=== PATIENT | female | born 1945 | race Hispanic/Latino ===

== ENCOUNTER 2017-09-12 16:03 | Emergency (ER) | payer OTHER ==
[2017-09-12] MEDS ORDERED: TRAMADOL HCL 50 MG TAB ONE (17:19)
[2017-09-12] MEDS ORDERED: KETOROLAC 30 MG/ML INJ ONE (18:01)
--- NOTE | 2017-09-12 18:06 | RAD REPORT ---
EXAM DESCRIPTION: RAD - Chest Single View - 09/12/2017 5:31 pm CLINICAL HISTORY: Chest pain COMPARISON: January 2017 TECHNIQUE: AP portable chest image was obtained 1715 hours . FINDINGS: Lung volumes are relatively low but similar to the prior study. No infiltrate, mass or colton lure finding. Heart, mediastinal and hilar regions within normal limits. Trachea is midline. No measu rable pleural effusion and no pneumothorax. No acute bone abnormality seen. No acute aortic findings suspected. IMPRESSION: No acute cardiopulmonary process. No significant change from comparison.
--- NOTE | 2017-09-12 18:08 | RAD REPORT ---
EXAM DESCRIPTION: RAD - Ribs Left - 09/12/2017 5:31 pm CLINICAL HISTORY: Left anterior chest pain COMPARISON: None. FINDINGS: No displaced rib fracture is seen and no non-displaced rib fractures suspected. No aggress willis rib lesion. No underlying pneumothorax, effusion, infiltrate or pulmonary contusion. Patient has prominent costochondral calcifications. No acute thoracic vertebral finding identifiable. No paraspinal mass. IMPRESSION: Negative left rib series for acute or suspicious finding.
--- NOTE | 2017-09-12 19:12 | RAD REPORT ---
EXAM DESCRIPTION: CT - Thorax Wo Con - 09/12/2017 6:37 pm CLINICAL HISTORY: Fall, left-sided chest pain, exam findings out of proportion to the imaging findin gs. COMPARISON: Chest and rib films same date, CT study 2013 TECHNIQUE: Axial 5 mm thick images of the chest were obtained without IV contrast. All CT scans are performed using dose optimization technique as appropriate and may include automated exposure control or mA/KV adjustment according to patient size. FINDINGS: No mass, infiltrate or pulmonary contusion. No pneumothorax or pleural fluid collection. N o pleural thickening or pleural effusion. No pneumothorax. No abnormal mediastinal or hilar masses or lymphadenopathy seen. No gross aortic or pulmonary artery finding suspected. Assessment is limited in the absence of IV contrast. No pericardial thickening or effusion. Patient has prominent costochondral calcifications. No thoracic vertebral compression. No chest wall mass or abnormal axillary lymphadenopathy. IMPRESSION: Negative non-contrast CT chest examination for acute or significant finding.
--- NOTE | 2017-09-12 19:16 | EDPHYS ---
Physician Documentation [facility] Name: Eliz Heart Age: 72 yrs Sex: Female : 1945 Arrival Date: 09/12/2017 Time: 16:03 Bed 18 Private MD: Mariel Lai H ED Physician Robin Jones HPI: 09/12 17:16 This 72 yrs old Female presents to ER via Wheelchair with complaints of Chest kb Pain. 17:16 The patient or guardian reports chest pain that is located primarily in the anterior kb chest wall. Onset: The symptoms/episode began/occurred 6 day(s) ago, and became worse last night. The pain does not radiate. Associated signs and symptoms: The patient has no apparent associated signs or symptoms. The chest pain is described as sharp. Duration: The patient or guardian reports a single episode, that is still ongoing, and worsening. Modifying factors: The symptoms are alleviated by nothing. the symptoms are aggravated by activity, breathing, cough, deep breath, movement, palpation of area. Severity of pain: At its worst the pain was moderate in the emergency department the pain is unchanged. The patient has not experienced similar symptoms in the past. The patient has not recently seen a physician. Pt reports she fell 6 days ago and has had chest pain ever since. States the pain is across lower chest, under breasts. States the pain increased last night. Worse with deep breath, any movement, pressure to area. . Historical: - Allergies: 16:08 Tylenol; aj - Home Meds: 16:08 glipizide 10 mg Oral tab [Active]; metformin 1,000 mg Oral tab [Active]; aj - PMHx: 16:08 Diabetes - NIDDM; Hyperlipidemia; urinary incontinenece; aj - PSHx: 16:08 bladder lift; Hysterectomy; Cholecystectomy; aj - Immunization history:: Adult Immunizations up to date. - Social history:: Smoking status: Patient/guardian denies using tobacco. ROS: 17:16 Constitutional: Negative for fever, chills, and weight loss, ENT: Negative for injury, kb pain, and discharge, Neck: Negative for injury, pain, and swelling, Respiratory: Negative for shortness of breath, cough, wheezing, and pleuritic chest pain, Abdomen/GI: Negative for abdominal pain, nausea, vomiting, diarrhea, and constipation, MS/Extremity: Negative for injury and deformity, Skin: Negative for injury, rash, and discoloration, Neuro: Negative for headache, weakness, numbness, tingling, and seizure. 17:16 Cardiovascular: Positive for chest pain, with cough, with movement, of the diaphragm and left lateral anterior chest, Negative for edema, orthopnea, palpitations, paroxysmal nocturnal dyspnea. Exam: 17:15 Constitutional: This is a well developed, well nourished patient who is awake, alert, kb and in no acute distress. Head/Face: Normocephalic, atraumatic. ENT: Nares patent. No nasal discharge, no septal abnormalities noted. Tympanic membranes are normal and external auditory canals are clear. Oropharynx with no redness, swelling, or masses, exudates, or evidence of obstruction, uvula midline. Mucous membranes moist. Neck: Trachea midline, no thyromegaly or masses palpated, and no cervical lymphadenopathy. Supple, full range of motion without nuchal rigidity, or vertebral point tenderness. No Meningismus. Cardiovascular: Regular rate and rhythm with a normal S1 and S2. No gallops, murmurs, or rubs. Normal PMI, no JVD. No pulse deficits. Respiratory: Lungs have equal breath sounds bilaterally, clear to auscultation and percussion. No rales, rhonchi or wheezes noted. No increased work of breathing, no retractions or nasal flaring. Abdomen/GI: Soft, non-tender, with normal bowel sounds. No distension or tympany. No guarding or rebound. No evidence of tenderness throughout. Skin: Warm, dry with normal turgor. Normal color with no rashes, no lesions, and no evidence of cellulitis. MS/ Extremity: Pulses equal, no cyanosis. Neurovascular intact. Full, normal range of motion. Neuro: Awake and alert, GCS 15, oriented to person, place, time, and situation. Cranial nerves II-XII grossly intact. Motor strength 5/5 in all extremities. Sensory grossly intact. Cerebellar exam normal. Normal gait. 17:15 Chest/axilla: Inspection: normal, Palpation: tenderness, that is moderate, of the diaphragm and left lateral anterior chest, that partially reproduces the patient's complaints. Vital Signs: 16:08 BP 135 / 81; Pulse 94; Resp 21; Temp 98.2; Pulse Ox 98% on R/A; Weight 77.11 kg; Height aj 5 ft. 1 in. (154.94 cm); Pain 10/10; 17:10 BP 151 / 67; Pulse 81; Resp 20; Pulse Ox 96% on R/A; Pain 10/10; em 18:09 BP 144 / 71; Pulse 71; Resp 16; Pulse Ox 99% on R/A; Pain 8/10; em 19:33 BP 150 / 80; Pulse 79; Resp 16; Temp 98.1(O); Pulse Ox 94% on R/A; Pain 0/10; bs1 16:08 Body Mass Index 32.12 (77.11 kg, 154.94 cm) aj MDM: 16:10 Patient medically screened. kb 17:15 Data reviewed: vital signs, nurses notes. Data interpreted: Pulse oximetry: on room air kb is 96 %. Interpretation: normal. 19:14 Counseling: I had a detailed discussion with the patient and/or guardian regarding: the kb historical points, exam findings, and any diagnostic results supporting the discharge/admit diagnosis, radiology results, the need for outpatient follow up, a family practitioner, to return to the emergency department if symptoms worsen or persist or if there are any questions or concerns that arise at home. 09/12 16:15 Order name: Chest Single View XRAY; Complete Time: 18:09 kb 09/12 16:15 Order name: Ribs Left XRAY; Complete Time: 18:09 kb 09/12 16:20 Order name: EKG; Complete Time: 16:20 kb 09/12 18:16 Order name: CT Chest Wo Con; Complete Time: 19:14 kb 09/12 16:20 Order name: EKG - Nurse/Tech; Complete Time: 16:37 kb Administered Medications: 17:03 Drug: traMADol 50 mg Route: PO; em 17:48 Follow up: Response: No adverse reaction; Pain is unchanged, physician notified em 17:48 Drug: TORadol 60 mg Route: IM; Site: left gluteus; em 18:28 Follow up: Response: No adverse reaction; Pain is decreased em Disposition: 09/12/17 19:15 Discharged to Home. Impression: Contusion of left front wall of thorax. - Condition is Stable. - Discharge Instructions: Chest Contusion, [id number]. - Prescriptions for Tramadol 50 mg Oral Tablet - take 1 tablet by ORAL route every 8 hours as needed; 12 tablet. - Medication Reconciliation Form, Thank You Letter, Antibiotic Education, Prescription Opioid Use form. - Follow up: Emergency Department; When: As needed; Reason: Recheck today's complaints, Continuance of care, Re-evaluation by your physician. Follow up: Private Physician; When: 2 - 3 days; Reason: Recheck today's complaints, Continuance of care, Re-evaluation by your physician. Addendum: 09/14/2017 06:22 Co-signature as Attending Physician, Robin Jones MD. g s Signatures: Dispatcher [employer] EDID Ethel Juares, STUDIO MUSICIAN-C STUDIO MUSICIAN-Naye Echavarria, RN RN Bruce Simon, HOSPITAL COORDINATOR HOSPITAL COORDINATOR em Robin Jones MD MD gs Salazar, Brittany, RN RN bs1
--- NOTE | 2017-09-12 19:16 | ER ---
Nurse's Notes [facility] Name: Eliz Heart Age: 72 yrs Sex: Female : 1945 Arrival Date: 09/12/2017 Time: 16:03 Bed 18 Private MD: Mariel Lai H Diagnosis: Contusion of left front wall of thorax Presentation: 09/12 16:06 Presenting complaint: Patient states: Reports anterior chest pain that started 6 days aj ago when patient fell at work. Patient reports pain became worse last night. Pain is exacerbated with deep breathing and palpation. Transition of care: patient was not received from another setting of care. Onset of symptoms was September 06, 2017. Care prior to arrival: None. 16:06 Method Of Arrival: Wheelchair aj 16:06 Acuity: THOMAS 3 aj Triage Assessment: 16:08 General: Appears in no apparent distress. uncomfortable, Behavior is calm, cooperative, aj appropriate for age. Pain: Complains of pain in anterior aspect of right upper chest, anterior aspect of left upper chest, mid-sternal area, right breast and left breast Pain currently is 10 out of 10 on a pain scale. Neuro: Level of Consciousness is awake, alert, obeys commands, Oriented to person, place, time, situation. Cardiovascular: Reports chest pain, Capillary refill < 3 seconds in bilateral fingers Patient's skin is warm and dry. Chest pain is described as severe, quality is sharp, is located in anterior chest wall. Respiratory: Reports pain with respiration Airway is patent Respiratory effort is even, unlabored, Respiratory pattern is regular, symmetrical. Derm: Skin is intact, is healthy with good turgor, Skin is pink, warm \T\ dry. normal. Historical: - Allergies: 16:08 Tylenol; aj - Home Meds: 16:08 glipizide 10 mg Oral tab [Active]; metformin 1,000 mg Oral tab [Active]; aj - PMHx: 16:08 Diabetes - NIDDM; Hyperlipidemia; urinary incontinenece; aj - PSHx: 16:08 bladder lift; Hysterectomy; Cholecystectomy; aj - Immunization history:: Adult Immunizations up to date. - Social history:: Smoking status: Patient/guardian denies using tobacco. Screenin:20 Abuse screen: Denies threats or abuse. Nutritional screening: No deficits noted. em Tuberculosis screening: No symptoms or risk factors identified. Fall Risk None identified. Assessment: 16:20 Reassessment: Patient and/or family updated on plan of care and expected duration. Pain em level reassessed. General: Appears in no apparent distress. uncomfortable, Behavior is cooperative, anxious, Reports falling and landing on chest 6 days ago, had minimal pain 6 days ago, pain became worse last night, more painful with respirations. Pain: Complains of pain in left breast and right breast and mid-sternal area. Pain: Pain radiates to back Pain currently is 10 out of 10 on a pain scale. Quality of pain is described as sharp, Pain began 6 days ago. Neuro: Level of Consciousness is awake, alert, obeys commands, Oriented to person, place, time, situation. Cardiovascular: Reports chest pain, shortness of breath, Denies diaphoresis, nausea, vomiting, Heart tones S1 S2 present Capillary refill < 3 seconds Patient's skin is warm and dry. Respiratory: Airway is patent Respiratory effort is even, unlabored, Respiratory pattern is regular, symmetrical. GI: Abdomen is round non-distended. : No signs and/or symptoms were reported regarding the genitourinary system. EENT: No signs and/or symptoms were reported regarding the EENT system. Derm: Skin is intact, Skin is pink, warm \T\ dry. Musculoskeletal: Range of motion: intact in all extremities. 16:25 General: The previous assessment is accurate, call light remains within reach. . ss 17:31 Reassessment: Patient appears in no apparent distress at this time. Patient and/or em family updated on plan of care and expected duration. Pain level reassessed. pt reports medication has not helped still in pain, moaning and grimacing, VIOLA Davenport notified, new medication orders received Patient states symptoms have not improved. 18:23 Reassessment: Patient and/or family updated on plan of care and expected duration. Pain em level reassessed. Patient is alert, oriented x 3, equal unlabored respirations, skin warm/dry/pink. medication has relieved the pain, rates pain 8/10, appears comfortable, family at bedside Patient states feeling better. Vital Signs: 16:08 BP 135 / 81; Pulse 94; Resp 21; Temp 98.2; Pulse Ox 98% on R/A; Weight 77.11 kg; Height aj 5 ft. 1 in. (154.94 cm); Pain 10/10; 17:10 BP 151 / 67; Pulse 81; Resp 20; Pulse Ox 96% on R/A; Pain 10/10; em 18:09 BP 144 / 71; Pulse 71; Resp 16; Pulse Ox 99% on R/A; Pain 8/10; em 19:33 BP 150 / 80; Pulse 79; Resp 16; Temp 98.1(O); Pulse Ox 94% on R/A; Pain 0/10; bs1 16:08 Body Mass Index 32.12 (77.11 kg, 154.94 cm) aj ED Course: 16:03 Patient arrived in ED. as 16:04 Mariel Lai DO is Private Physician. as 16:07 Triage completed. aj 16:08 Arm band placed on left wrist. Patient placed in an exam room. aj 16:10 Ethel Juares FNP-C is [facility]. kb 16:10 Robin Jones MD is Attending Physician. kb 16:18 Bruce Melara LVN is Primary Nurse. em 16:20 Patient has correct armband on for positive identification. Call light in reach. Side em rails up X2. Adult w/ patient. media monitor on. Pulse ox on. 16:20 No provider procedures requiring assistance completed. Patient did not have IV access em during this emergency room visit. Patient maintains SpO2 saturation greater than 95% on room air. 16:26 EKG done, by biometric technician. reviewed by Ethel WYLIE. at1 17:23 Radiology exam delayed due to patient is not appropriately dressed for the exam at this ml time. 17:26 X-ray completed. Patient tolerated procedure well. Patient moved back from radiology. ml 17:29 Chest Single View XRAY In Process Unspecified. EDMS 17:29 Ribs Left XRAY In Process Unspecified. EDMS 18:[address] via stretcher. nj 18:37 CT Chest Wo Con In Process Unspecified. EDMS 19:05 Report given to LAURIE Lynch. em 19:11 Report received from ALAN Barrera. bs1 Administered Medications: 17:03 Drug: traMADol 50 mg Route: PO; em 17:48 Follow up: Response: No adverse reaction; Pain is unchanged, physician notified em 17:48 Drug: TORadol 60 mg Route: IM; Site: left gluteus; em 18:28 Follow up: Response: No adverse reaction; Pain is decreased em Outcome: 19:15 Discharge ordered by MD. barkley 19:32 Discharged to home via wheelchair, with significant other. bs1 19:32 Condition: stable 19:32 Discharge instructions given to patient, significant other, Instructed on discharge instructions, follow up and referral plans. medication usage, Demonstrated understanding of instructions, follow-up care, medications, Prescriptions given X 1. 19:33 Patient left the ED. bs1 Signatures: Dispatcher [employer] EDMS Ethel Juares, MATERIAL COMBINER-C MATERIAL COMBINER-Ckb Naye Thurston, RN RN Bruce Simon, LITERARY WRITER LITERARY WRITER Talita Ching Melissa ml Smirch, Shelby, RN RN Naye basurto, water conservationist EKG Tat1 Denny Montoya Brittany RN RN bs1
[2017-09-12 19:41] VITALS: BP 150/80; TEMP 98.1; O2SAT 94
--- NOTE | 2017-09-15 13:01 | EKG ---
Test Date: 2017-09-12 Test Time: 16:19:37 Gluer And Wedger: CARMEN MEASUREMENT RESULTS: Intervals: Rate: 87 WI: 152 QRSD: 78 QT: 354 QTc: 425 [place]: P: -1 WI: 152 QRS: 24 T: 35 INTERPRETIVE STATEMENTS: Normal sinus rhythm Normal ECG Compared to ECG 01/16/2017 05:21:38 No significant changes Electronically Signed On 09-15-17 13:00:55 CDT by Josh Lowry
== END 2017-09-12 19:33 | disposition home or self-care (01) ==
LOC: ER 16:03
DX: S20.212A Contusion of left front wall of thorax, initial encounter (principal); W19.XXXA Unspecified fall, initial encounter; Z88.6 Allergy status to analgesic agent; E78.5 Hyperlipidemia, unspecified; E11.9 Type 2 diabetes mellitus without complications
CPT/HCPCS: 71045; 71250; 93005; 96372; 99285

== ENCOUNTER 2018-06-28 09:09 | Emergency (ER) | payer OTHER ==
--- OUTSIDE RECORDS SUMMARY | 2018-06-28 09:11 | XMS REPORT | Clinical Summary ---
:1945 Author Organization [facility] Address [address] [place] [address] Care Team Providers Name Role Phone Mariel Lai DO Primary Care Provider Allergies Active Allergy Reactions Severity Noted Date Comments Acetaminophen 01/29/2017 Medications Medication Sig Dispensed Refills Start Date End Date Status metFORMIN (GLUCOPHAGE) Take 500 mg by 1 12/12/2016 Active 500 mg tablet mouth 2 (two) times a day. glipiZIDE (GLUCOTROL) 5 Take 5 mg by 1 12/12/2016 Active MG tablet mouth 2 (two) times a day. lansoprazole (PREVACID) Take 30 mg by 1 01/07/2017 Active 30 MG capsule mouth once daily. betamethasone APPLY TO AFFECTED 99 12/12/2016 Active dipropionate AREA TWICE A DAY (DIPROLENE) 0.05 % cream aspirin (ECOTRIN) 81 MG Take 81 mg by 0 Active enteric coated tablet mouth daily. DOCOSAHEXANOIC ACID/EPA Take by mouth. 0 Active (FISH OIL ORAL) Active Problems Problem Noted Date Pure hypercholesterolemia 08/20/2017 Chest pain 01/29/2017 Encounters Date Type Specialty Care Team Description 03/27/2018 Orders Only Cardiology Reuben Clayton MD 03/04/2018 Orders Only Cardiology Shelbie Kuhn ( Primary Dx); YONNY Giang SOB (shortness of breath); Palpitation 08/20/2017 Office Visit Cardiology Reuben Clayton Pure hypercholesterolemia (Primary Dx) after 06/27/2017 Social History Tobacco Use Types Packs/Day Years Used Date Never Smoker Smokeless Tobacco: Never Used Sex Assigned at Date Recorded Not on file Job Start Date Occupation Industry Not on file Not on file Not on file Travel History Travel Start Travel End No recent travel history available. 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 MINE ANALYST Pulse 72 08/20/2017 11:04 AM MINE ANALYST Temperature - - Respiratory Rate - - Oxygen Saturation - - Inhaled Oxygen Concentration - - Weight 81.2 kg (179 lb) 08/20/2017 11:04 AM MINE ANALYST Height 154.9 cm (5' 1") 08/20/2017 11:04 AM MINE ANALYST Body Mass Index 33.82 08/20/2017 11:04 AM MINE ANALYST Plan of Treatment Health Maintenance Due Date Last Done Comments BREAST CANCER SCREENING 1995 COLON CANCER SCREENING 1995 SHINGLES VACCINES (1 of 2) 1995 PNEUMOCOCCAL POLYSACCHARIDE VACCINE AGE 65 AND OVER 2010 PNEUMOCOCCAL-13 2010 INFLUENZA VACCINE 01/15/2018 Procedures Procedure Name Priority Date/Time Associated Diagnosis Comments NM MYOCARDIAL PERFUSION Routine 03/27/2018 after 06/27/2017 Results Nm myocardial perfusion (03/27/2018) Narrative Performed At after 06/27/2017 Insurance Payer Benefit Plan / Group Subscriber ID Type Phone Address AETNA MEDICARE AETNA MEDICARE HMO/PPO [facility] xxxxxxxx HMO Advance Directives Patient has advance care planning documents on file. For more information, please contact:[place] [address]
[2018-06-28 09:45] LABS: Absolute Monocytes 0.4 K/uL (0.1-1.3); Absolute Neutrophil 3.4 K/uL (1.8-8.0); Basophils % 1.3 % (0-1.3); Eosinophils % 8.1 % (0-4.4); Hematocrit 41.9 % (36.0-45.0); Lymphocytes % 18.5 % (15.3-44.8); MPV 9.1 fL (7.6-11.3); Monocytes % 8.1 % (3.3-12.3); RBC Red Blood Cell Count 4.95 M/uL (3.86-4.86)
[2018-06-28 09:58] LABS: Potassium 4.2 mmol/L (3.5-5.1)
--- NOTE | 2018-06-28 10:33 | ER ---
Nurse's Notes [facility] Name: Eliz Heart Age: 73 yrs Sex: Female : 1945 Arrival Date: 06/28/2018 Time: 09:12 Bed 20 Private MD: Diagnosis: Acute upper respiratory infection, unspecified Presentation: 06/28 09:16 Presenting complaint: EMS states: called out for cough , SOB, and coughing up blood, pt em reports feeling bad since , denies fever, reports vomiting after coughing sputum. Transition of care: patient was not received from another setting of care. Onset of symptoms was June 26, 2018. Risk Assessment: Do you want to hurt yourself or someone else? Patient reports no desire to harm self or others. Initial Sepsis Screen: Does the patient meet any 2 criteria? No. Patient's initial sepsis screen is negative. Does the patient have a suspected source of infection? No. Patient's initial sepsis screen is negative. Care prior to arrival: None. 09:16 Method Of Arrival: EMS: [facility] em 09:16 Acuity: THOMAS 3 ss Triage Assessment: 09:19 General: Appears in no apparent distress. uncomfortable, Behavior is calm, cooperative, em Reports feeling ill for fatigue for Denies fever. Pain: Complains of pain in chest. Historical: - Allergies: :19 Tylenol; em - PMHx: 09:19 Diabetes - NIDDM; Hyperlipidemia; urinary incontinenece; em - Immunization history:: Adult Immunizations up to date. - Social history:: Smoking status: Patient/guardian denies using tobacco. - Ebola Screening: : Patient negative for fever greater than or equal to 101.5 degrees Fahrenheit, and additional compatible Ebola Virus Disease symptoms Patient denies exposure to infectious person Patient denies travel to an Ebola-affected area in the 21 days before illness onset No symptoms or risks identified at this time. Screenin:20 Abuse screen: Denies threats or abuse. Nutritional screening: No deficits noted. em Tuberculosis screening: No symptoms or risk factors identified. Fall Risk None identified. Assessment: 09:19 General: Appears Behavior is calm, cooperative. Pain: Pain currently is 5 out of 10 on em a pain scale. Pain began 2-3 days ago. Neuro: Level of Consciousness is awake, alert, obeys commands, Oriented to person, place, time, situation. Cardiovascular: Capillary refill < 3 seconds Patient's skin is warm and dry. Respiratory: Reports shortness of breath on exertion cough that is productive, pain with cough Airway is patent Respiratory effort is even, unlabored, Respiratory pattern is regular, symmetrical, Breath sounds are clear bilaterally. GI: Reports nausea, vomiting. : No signs and/or symptoms were reported regarding the genitourinary system. EENT: No signs and/or symptoms were reported regarding the EENT system. Derm: Skin is intact, Skin is pink, warm \T\ dry. Musculoskeletal: Range of motion: intact in all extremities. 10:15 Reassessment: Patient appears in no apparent distress at this time. Patient and/or em family updated on plan of care and expected duration. Pain level reassessed. Patient is alert, oriented x 3, equal unlabored respirations, skin warm/dry/pink. Vital Signs: 09:19 BP 129 / 77; Pulse 97; Resp 16; Temp 98.5(O); Pulse Ox 95% on R/A; Weight 86.18 kg; em Height 5 ft. 1 in. (154.94 cm); Pain 5/10; 10:15 BP 135 / 58; Pulse 82; Resp 16; Pulse Ox 99% on R/A; em 09:19 Body Mass Index 35.90 (86.18 kg, 154.94 cm) em ED Course: 09:12 Patient arrived in ED. em 09:12 Ethel Juares FNP-C is [facility]. kb 09:12 Robin Jones MD is Attending Physician. kb 09:16 Bruce Melara LVN is Primary Nurse. em 09:19 Arm band placed on. em 09:20 Patient has correct armband on for positive identification. Bed in low position. Call em light in reach. Side rails up X2. Adult w/ patient. Pulse ox on. NIBP on. 09:22 Triage completed. ss 09:40 Initial lab(s) drawn, by me, sent to lab. Flu and/or RSV swab sent to lab. Inserted em saline lock: 22 gauge in right antecubital area, using aseptic technique. Blood collected. 09:47 Chest Single View In Process Unspecified. EDMS 10:45 No provider procedures requiring assistance completed. IV discontinued, intact, em bleeding controlled, No redness/swelling at site. Pressure dressing applied. Administered Medications: No medications were administered Outcome: 10:32 Discharge ordered by . filippo 10:58 Discharged to home ambulatory. em 10:58 Condition: good 10:58 Discharge instructions given to patient, family, Instructed on discharge instructions, follow up and referral plans. medication usage, Demonstrated understanding of instructions, follow-up care, medications, Prescriptions given X 1. 10:59 Patient left the ED. em Signatures: Dispatcher [employer] EDEthel Haskins, MARE-C MUSIC INDUSTRY INTERN-Bruce Julio, PARQUETRY LAYER PARQUETRY LAYER em Karolina Meredith, RN RN ss
--- NOTE | 2018-06-28 10:33 | EDPHYS ---
Physician Documentation [facility] Name: Eliz Heart Age: 73 yrs Sex: Female : 1945 Arrival Date: 06/28/2018 Time: 09:12 Bed 20 Private MD: ED Physician Robin Jones HPI: 06/28 09:23 This 73 yrs old Female presents to ER via EMS with complaints of Cough. kb 09:23 The patient or guardian reports cough, that is intermittent, described as moderate, kb with no sputum, flu symptoms, low-grade fever, myalgias. Onset: The symptoms/episode began/occurred 2 day(s) ago. Severity of symptoms: At their worst the symptoms were moderate, in the emergency department the symptoms are unchanged. Modifying factors: The symptoms are alleviated by nothing, the symptoms are aggravated by nothing. Associated signs and symptoms: Pertinent positives: fever, nausea, rhinorrhea, vomiting, Pertinent negatives: chest pain, diarrhea, ear ache, sore throat. The patient has not experienced similar symptoms in the past. The patient has not recently seen a physician. 09:24 Pt reports and son have had similar symptoms. . kb Historical: - Allergies: 09:19 Tylenol; em - PMHx: 09:19 Diabetes - NIDDM; Hyperlipidemia; urinary incontinenece; em - Immunization history:: Adult Immunizations up to date. - Social history:: Smoking status: Patient/guardian denies using tobacco. - Ebola Screening: : Patient negative for fever greater than or equal to 101.5 degrees Fahrenheit, and additional compatible Ebola Virus Disease symptoms Patient denies exposure to infectious person Patient denies travel to an Ebola-affected area in the 21 days before illness onset No symptoms or risks identified at this time. ROS: 09:22 ENT: Negative for injury, pain, and discharge, Neck: Negative for injury, pain, and kb swelling, Cardiovascular: Negative for chest pain, palpitations, and edema, Back: Negative for injury and pain, : Negative for injury, bleeding, discharge, and swelling, MS/Extremity: Negative for injury and deformity, Skin: Negative for injury, rash, and discoloration, Neuro: Negative for headache, weakness, numbness, tingling, and seizure. 09:22 Constitutional: Positive for body aches, chills, fatigue, fever, malaise, Negative for poor PO intake, weight loss. 09:22 Respiratory: Positive for cough, Negative for dyspnea on exertion, hemoptysis, orthopnea, pleurisy, shortness of breath, sputum production, wheezing. 09:22 Abdomen/GI: Positive for nausea and vomiting, Negative for abdominal pain, diarrhea, constipation, abdominal cramps, abdominal distension, anorexia. Exam: 09:23 Constitutional: This is a well developed, well nourished patient who is awake, alert, kb and in no acute distress. Head/Face: Normocephalic, atraumatic. ENT: Nares patent. No nasal discharge, no septal abnormalities noted. Tympanic membranes are normal and external auditory canals are clear. Oropharynx with no redness, swelling, or masses, exudates, or evidence of obstruction, uvula midline. Mucous membranes moist. Neck: Trachea midline, no thyromegaly or masses palpated, and no cervical lymphadenopathy. Supple, full range of motion without nuchal rigidity, or vertebral point tenderness. No Meningismus. Chest/axilla: Normal chest wall appearance and motion. Nontender with no deformity. No lesions are appreciated. Cardiovascular: Regular rate and rhythm with a normal S1 and S2. No gallops, murmurs, or rubs. Normal PMI, no JVD. No pulse deficits. Respiratory: Lungs have equal breath sounds bilaterally, clear to auscultation and percussion. No rales, rhonchi or wheezes noted. No increased work of breathing, no retractions or nasal flaring. Abdomen/GI: Soft, non-tender, with normal bowel sounds. No distension or tympany. No guarding or rebound. No evidence of tenderness throughout. Skin: Warm, dry with normal turgor. Normal color with no rashes, no lesions, and no evidence of cellulitis. MS/ Extremity: Pulses equal, no cyanosis. Neurovascular intact. Full, normal range of motion. Neuro: Awake and alert, GCS 15, oriented to person, place, time, and situation. Cranial nerves II-XII grossly intact. Motor strength 5/5 in all extremities. Sensory grossly intact. Cerebellar exam normal. Normal gait. Vital Signs: 09:19 BP 129 / 77; Pulse 97; Resp 16; Temp 98.5(O); Pulse Ox 95% on R/A; Weight 86.18 kg; em Height 5 ft. 1 in. (154.94 cm); Pain 5/10; 10:15 BP 135 / 58; Pulse 82; Resp 16; Pulse Ox 99% on R/A; em 09:19 Body Mass Index 35.90 (86.18 kg, 154.94 cm) em MDM: 09:13 Patient medically screened. kb 09:23 Data reviewed: vital signs, nurses notes. Data interpreted: Pulse oximetry: on room air kb is 95 %. Interpretation: normal. 10:32 Counseling: I had a detailed discussion with the patient and/or guardian regarding: the kb historical points, exam findings, and any diagnostic results supporting the discharge/admit diagnosis, lab results, radiology results, the need for outpatient follow up, a family practitioner, to return to the emergency department if symptoms worsen or persist or if there are any questions or concerns that arise at home. 06/28 09:29 Order name: Basic Metabolic Panel; Complete Time: 10:14 EDMS 06/28 09:29 Order name: CBC with Automated Diff; Complete Time: 09:51 EDMS 06/28 09:29 Order name: Influenza Screen (A ; Complete Time: 10:14 EDMS 06/28 09:29 Order name: Chest Single View; Complete Time: 11:26 EDMS Administered Medications: No medications were administered Disposition: 17:24 Co-signature as Attending Physician, Robin Jones MD. Disposition: 06/28/18 10:32 Discharged to Home. Impression: Acute upper respiratory infection, unspecified. - Condition is Stable. - Discharge Instructions: Upper Respiratory Infection, Adult, [id number]. - Prescriptions for Tessalon Perles 100 mg Oral Capsule - take 1 capsule by ORAL route every 8 hours As needed; 15 capsule. - Medication Reconciliation Form, Thank You Letter, Antibiotic Education, Prescription Opioid Use form. - Follow up: Emergency Department; When: As needed; Reason: Worsening of condition. Follow up: Private Physician; When: 2 - 3 days; Reason: Recheck today's complaints, Continuance of care, Re-evaluation by your physician. Signatures: Dispatcher [employer] EDKY Ethel Juares, DEJAN TAX SERVICES INTERN-Ckb Bruce Melara, ROCKET ENGINE COMPONENT MECHANIC ROCKET ENGINE COMPONENT MECHANIC Robin Aparicio MD MD Corrections: (The following items were deleted from the chart) 09:38 09:31 Influenza Screen (A ordered. EDKY EDMS 09:47 09:42 Chest Single View+RAD.RAD.BRZ ordered. EDKY EDMS 10:59 10:32 06/28/2018 10:32 Discharged to Home. Impression: Acute upper respiratory em infection, unspecified. Condition is Stable. Forms are Medication Reconciliation Form, Thank You Letter, Antibiotic Education, Prescription Opioid Use. Follow up: Emergency Department; When: As needed; Reason: Worsening of condition. Follow up: Private Physician; When: 2 - 3 days; Reason: Recheck today's complaints, Continuance of care, Re-evaluation by your physician. kb
--- NOTE | 2018-06-28 11:18 | RAD REPORT ---
EXAM DESCRIPTION: RAD - Chest Single View - 06/28/2018 9:47 am CLINICAL HISTORY: Cough, shortness of breath COMPARISON: August 2017 TECHNIQUE: AP portable chest image was obtained 0941 hours . FINDINGS: Lung volumes are low. Lung markings are similar to comparison. No acute finding suspected. Heart and vasculature are normal. No measurable pleural effusion and no pneumothorax. No acute bony abnormality seen. No acute aortic findings suspected. IMPRESSION: No acute cardiopulmonary process. No suspicious interval change.
[2018-06-28 11:48] VITALS: BP 135/58; TEMP 98.5; O2SAT 99
== END 2018-06-28 10:59 | disposition home or self-care (01) ==
LOC: ER 09:09
DX: J06.9 Acute upper respiratory infection, unspecified (principal); Z88.6 Allergy status to analgesic agent
CPT/HCPCS: 36415; 71045; 80048; 85025; 87804; 99284

== ENCOUNTER 2022-04-22 21:20 | Inpatient (IN) | payer OTHER ==
--- NOTE | 2022-04-22 21:47 | RAD REPORT ---
EXAM DESCRIPTION: CT - Ct Stroke Brain Wo Cont - 04/22/2022 9:39 pm CLINICAL HISTORY: Neuro deficit, acute, stroke suspected Headache, drowsiness, CVA symptomology COMPARISON: No comparisons TECHNIQUE: All CT scans are performed using dose optimization technique as appropriate and may inclu de automated exposure control or mA/KV adjustment according to patient size. FINDINGS: No intracranial hemorrhage, hydrocephalus or extra-axial fluid collection.Mild brain atrop hy is present. 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 Mild mucosal thickening the left maxillary antrum. The paranasal sinuses mastoids are otherwise clear . The calvarium is intact. IMPRESSION: No acute intracranial abnormality. If there is continued clinical concern for CVA, MR imaging of the brain would be recommended. The findings were discussed with Dr Allred in the ER on 04-22-22 at 9:41pm by telephone.
[2022-04-22 21:53] LABS: Absolute Lymphocytes (CBC) 2.3 K/uL (0.7-4.9); Hematocrit 37.7 % (36.0-45.0); Lymphocytes % 24.3 % (15.3-44.8); MCV 84.3 fL (80-100); MPV 8.7 fL (7.6-11.3); RBC Red Blood Cell Count 4.47 M/uL (3.86-4.86)
[2022-04-22] MEDS ORDERED: TENECTEPLASE 50 MG/10 ML VIAL IV ONE (22:02)
[2022-04-22 22:06] LABS: Potassium 3.4 mmol/L (3.5-5.1); Troponin High Sensitivity 41.4 pg/mL (<58.9)
--- NOTE | 2022-04-22 22:28 | RAD REPORT ---
EXAM DESCRIPTION: RAD - Chest Single View - 04/22/2022 10:17 pm CLINICAL HISTORY: weak Chest pain. COMPARISON: Chest Single View dated 06/28/2018; Chest Single View dated 09/12/2017; Chest Single View dated 01/16/2017; CHEST SINGLE VIEW dated 09/03/2015 FINDINGS: Portable technique limits examination quality. The lungs are underinflated resulting in vascular crowding. The heart is upper limit of normal in siz e. No displaced fractures.
--- NOTE | 2022-04-22 23:15 | EDPHYS ---
Physician Documentation [facility] Name: Eliz Heart Age: 77 yrs Sex: Female : 1945 Arrival Date: 04/22/2022 Time: 21:27 Bed 6 Private MD: ED Physician Miguel Angel Allred HPI: 04/23 03:22 This 77 yrs old Female presents to ER via EMS with complaints of S/S of kdr Possible Stroke. 03:22 The patient's problem is reported as dysphasia, slurred speech, slow speech. Onset: The kdr symptoms/episode began/occurred at 20:00. Duration: This was a single incident, the symptoms became persistent just prior to arrival, 2 minute(s) ago. Context: the episode(s) was witnessed, by a bystander, occurred at home. Associated signs and symptoms: The patient has no apparent associated signs or symptoms. Onset: The symptoms/episode began/occurred suddenly. Severity of symptoms: At their worst the symptoms were mild. Historical: - Allergies: 04/22 21:46 Tylenol; hb - Home Meds: 21:46 glipizide 10 mg Oral tab [Active]; metformin 1,000 mg Oral tab [Active]; hb - PMHx: 21:46 Diabetes - NIDDM; urinary incontinenece; Hyperlipidemia; hb - Immunization history:: Adult Immunizations up to date. - Social history:: Smoking status: Patient denies any tobacco usage or history of. ROS: 04/23 03:24 Constitutional: Negative for fever, chills, and weight loss, Eyes: Negative for injury, kdr pain, redness, and discharge, ENT: Negative for injury, pain, and discharge, Neck: Negative for injury, pain, and swelling, Cardiovascular: Negative for chest pain, palpitations, and edema, Respiratory: Negative for shortness of breath, cough, wheezing, and pleuritic chest pain, Abdomen/GI: Negative for abdominal pain, nausea, vomiting, diarrhea, and constipation, Back: Negative for injury and pain, : Negative for injury, bleeding, discharge, and swelling, MS/Extremity: Negative for injury and deformity, Skin: Negative for injury, rash, and discoloration, Psych: Negative for depression, anxiety, suicide ideation, homicidal ideation, and hallucinations, Allergy/Immunology: Negative for hives, rash, and allergies, Endocrine: Negative for neck swelling, polydipsia, polyuria, polyphagia, and marked weight changes, Hematologic/Lymphatic: Negative for swollen nodes, abnormal bleeding, and unusual bruising. Neuro: Positive for speech changes. Exam: 04/22 22:14 ECG was reviewed by the Attending Physician. kdr 04/23 03:24 Constitutional: This is a well developed, well nourished patient who is awake, alert, kdr and in no acute distress. Head/Face: Normocephalic, atraumatic. Eyes: Pupils equal round and reactive to light, extra-ocular motions intact. Lids and lashes normal. Conjunctiva and sclera are non-icteric and not injected. Cornea within normal limits. Periorbital areas with no swelling, redness, or edema. Neck: Trachea midline, no thyromegaly or masses palpated, and no cervical lymphadenopathy. Supple, full range of motion without nuchal rigidity, or vertebral point tenderness. No Meningismus. Chest/axilla: Normal chest wall appearance and motion. Nontender with no deformity. No lesions are appreciated. Cardiovascular: Regular rate and rhythm with a normal S1 and S2. No gallops, murmurs, or rubs. Normal PMI, no JVD. No pulse deficits. Respiratory: Lungs have equal breath sounds bilaterally, clear to auscultation and percussion. No rales, rhonchi or wheezes noted. No increased work of breathing, no retractions or nasal flaring. Abdomen/GI: Soft, non-tender, with normal bowel sounds. No distension or tympany. No guarding or rebound. No evidence of tenderness throughout. Back: No spinal tenderness. No costovertebral tenderness. Full range of motion. Skin: Warm, dry with normal turgor. Normal color with no rashes, no lesions, and no evidence of cellulitis. MS/ Extremity: Pulses equal, no cyanosis. Neurovascular intact. Full, normal range of motion. Psych: Awake, alert, with orientation to person, place and time. Behavior, mood, and affect are within normal limits. Neuro: Orientation: to person, place, time, situation, Mentation: lucid, slow to respond, confused, Cranial nerves: no acute changes, Cerebellar function: unable to test, Motor: moves all fours, Movement is very limited on initial evaluation patient did appear to make some effort to move upper and lower extremities however he was minimal at best. Vital Signs: 04/22 21:39 BP 139 / 71; Pulse 79; Resp 17; Pulse Ox 94% on R/A; Pain 0/10; hb 21:45 BP 139 / 71; Pulse 80; Resp 17; Pulse Ox 99% on R/A; hb 22:00 BP 148 / 71; Pulse 67; Resp 16; Pulse Ox 96% on R/A; hb 22:02 Weight 78.47 kg; hb 22:15 BP 140 / 63; Pulse 72; Pulse Ox 96% on R/A; hb 23:10 BP 130 / 93; Pulse 67; Resp 18; Pulse Ox 93% on R/A; jb4 04/23 00:15 BP 136 / 66; Pulse 80; Resp 16; Pulse Ox 96% on R/A; jb4 01:15 BP 130 / 59; Pulse 74; Resp 15; Pulse Ox 94% ; jb4 02:15 BP 120 / 60; Pulse 73; Resp 16; Pulse Ox 93% on R/A; jb4 02:40 BP 127 / 60; Pulse 76; Resp 16; Pulse Ox 97% on R/A; jb4 03:40 BP 111 / 51; Pulse 79; Resp 16; Pulse Ox 94% on R/A; jb4 04:45 BP 115 / 56; Pulse 73; Resp 16; Pulse Ox 94% on R/A; jb4 05:45 BP 129 / 57; Pulse 69; Resp 14; Pulse Ox 95% on R/A; jb4 06:40 BP 107 / 48; Pulse 71; Resp 16; Pulse Ox 92% on R/A; jb4 19:36 BP 138 / 65; Pulse 85; Resp 18; Pulse Ox 94% on R/A; NIH Stroke Scale Scores: 04/22 21:27 NIHSS Score: 18 jb4 22:14 NIHSS Score: 16 kdr 22:45 NIHSS Score: 0 jb4 MDM: 23:14 Patient medically screened. kdr 04/23 02:15 ED course: I discussed the M1 aneurysm finding with Dr. Modi. He indicated that kdr unless the aneurysm was greater than 5 mm that it would likely not warrant immediate intervention. In addition, given that she received TN K earlier in the day, that would also make her less likely for an acute intervention at this time. 03:24 Data reviewed: lab test result(s), radiologic studies. Counseling: I had a detailed kdr discussion with the patient and/or guardian regarding: the historical points, exam findings, and any diagnostic results supporting the discharge/admit diagnosis, lab results, radiology results, the need for further work-up and treatment in the hospital. 04/22 21:28 Order name: Basic Metabolic Panel; Complete Time: 23:09 kdr 04/22 21:28 Order name: CBC with Diff; Complete Time: 23:09 kdr 04/22 21:28 Order name: High Sensitivity Troponin; Complete Time: 23:09 kdr 04/22 21:28 Order name: Protime (+inr); Complete Time: 23:09 kdr 04/22 21:28 Order name: Ptt, Activated; Complete Time: 23:09 kdr 04/22 21:52 Order name: Glucose, Ancillary Testing; Complete Time: 23:09 EDMD 04/22 23:57 Order name: SARS-COV-2 Antigen Rapid; Complete Time: 00:38 EDMD 04/23 05:12 Order name: CBC with Automated Diff EDMD 04/23 05:23 Order name: Comprehensive Metabolic Panel EDMD 04/23 05:23 Order name: Lipid Profile EDMD 04/23 08:43 Order name: Glucose, Ancillary Testing EDMD 04/23 12:24 Order name: Glucose, Ancillary Testing EDMD 04/23 16:24 Order name: Glucose, Ancillary Testing EDMD 04/22 21:28 Order name: CT Stroke Brain w/o Contrast; Complete Time: 23:09 kdr 04/22 21:28 Order name: Stroke CXR 1 View; Complete Time: 23:09 kdr 04/22 21:28 Order name: EKG; Complete Time: 21:30 kdr 04/22 21:28 Order name: Accucheck; Complete Time: 21:43 kdr 04/22 21:28 Order name: Cardiac monitoring; Complete Time: 21:43 kdr 04/22 21:28 Order name: EKG - Nurse/Tech; Complete Time: 21:51 kdr 04/22 21:28 Order name: IV Saline Lock; Complete Time: 21:43 kdr 04/22 23:02 Order name: CT Neck Angio [facility] 04/22 23:02 Order name: CT Head Angio [facility] 04/22 23:08 Order name: Head angio EDMD 04/23 08:09 Order name: US EDMS 04/23 13:02 Order name: MRI EDMS 04/23 13:06 Order name: MRI EDMS 04/23 13:19 Order name: MRI EDMS 04/22 21:28 Order name: Labs collected and sent; Complete Time: 21:43 kdr 04/22 21:28 Order name: NPO; Complete Time: 21:43 kdr 04/22 21:28 Order name: O2 Per Protocol; Complete Time: 21:43 kdr 04/22 21:28 Order name: O2 Sat Monitoring; Complete Time: 21:43 kdr 04/22 21:28 Order name: Stroke Swallow Screen; Complete Time: 22:57 kdr Administered Medications: 04/22 22:09 Drug: TNK FOR STROKE - Tenecteplase 0.25 mg/kg {Co-Signature: marc (Juan Garcia RN).} Route: IV; Rate: per protocol; Site: left antecubital; 04/23 01:33 Drug: Benadryl (diphenhydrAMINE) 12.5 mg Route: IVP; Site: right antecubital; marc Point of Care Testing: Blood Glucose: 04/22 21:39 Blood Glucose: 240 mg/dL; hb Ranges: Critical Glucose Levels:Adult <50 mg/dl or >400 mg/dl <40 mg/dl or >180 mg/dl Disposition Summary: 04/22/22 23:14 Hospitalization Ordered Provider: Kodi Healy Condition: Fair kdr Problem: new kdr Symptoms: have improved kdr Bed/Room Type: Standard kdr Hospitalization Status: Inpatient Admission(04/22/22 23:16) Location: Intensive Care Unit(04/23/22 19:16) Room Assignment: 8-(04/23/22 19:16) dw Diagnosis - Weakness kdr - Dysarthria following unspecified cerebrovascular disease kdr - Dysphasia kdr Forms: - Medication Reconciliation Form kdr - SBAR form kdr NIH Stroke Scale - NIH Stroke Score Date: 04/22/2022 Time: 21:27 Total Score = 18 1a. Level of Consciousness (LOC) - 0(Alert) 1b. Level of Consciousness (LOC) (Month \T\ Age) - 0(Both) 1c. LOC Commands (Open \T\ Closes Eyes/Air Crew Member) - 0(Both) 2. Best Gaze (Lateral Gaze Paresis) - 0(Normal) 3. Visual Field Loss - 0(No visual loss) 4. Facial Palsy - 0(Normal) 5a. Left Arm: Motor (10-second hold) - 3(No effort against gravity) 5b. Right Arm: Motor (10-second hold) - 3(No effort against gravity) 6a. Left Leg: Motor (5-second hold - always test supine) - 4(No movement) 6b. Right Leg: Motor (5-second hold - always test supine) - 4(No movement) 7. Limb Ataxia (finger/nose \T\ heel/uriostegui - test with eyes open) - 0(Absent) 8. Sensory Loss (pinprick arms/legs/face) - 2(Severe to total loss) 9. Best Language: Aphasia (description/naming/reading) - 1(Mild to moderate aphasia) 10. Dysarthria (speech clarity - read or repeat words) - 1(Mild to Moderate) 11. Extinction and Inattention (visual/tactile/auditory/spatial/personal) - 0(No abnormality) Initials: jb4 NIH Stroke Scale - NIH Stroke Score Date: 04/22/2022 Time: 22:14 Total Score = 16 1a. Level of Consciousness (LOC) - 0(Alert) 1b. Level of Consciousness (LOC) (Month \T\ Age) - 0(Both) 1c. LOC Commands (Open \T\ Closes Eyes/Air Crew Member) - 0(Both) 2. Best Gaze (Lateral Gaze Paresis) - 0(Normal) 3. Visual Field Loss - 0(No visual loss) 4. Facial Palsy - 0(Normal) 5a. Left Arm: Motor (10-second hold) - 3(No effort against gravity) 5b. Right Arm: Motor (10-second hold) - 3(No effort against gravity) 6a. Left Leg: Motor (5-second hold - always test supine) - 3(No effort against gravity) 6b. Right Leg: Motor (5-second hold - always test supine) - 3(No effort against gravity) 7. Limb Ataxia (finger/nose \T\ heel/uriostegui - test with eyes open) - 2(Present in two limbs) 8. Sensory Loss (pinprick arms/legs/face) - 0(Normal) 9. Best Language: Aphasia (description/naming/reading) - 1(Mild to moderate aphasia) 10. Dysarthria (speech clarity - read or repeat words) - 1(Mild to Moderate) 11. Extinction and Inattention (visual/tactile/auditory/spatial/personal) - 0(No abnormality) Initials: silvia NIH Stroke Scale - NIH Stroke Score Date: 04/22/2022 Time: 22:45 Total Score = 0 1a. Level of Consciousness (LOC) - 0(Alert) 1b. Level of Consciousness (LOC) (Month \T\ Age) - 0(Both) 1c. LOC Commands (Open \T\ Closes Eyes/Air Crew Member) - 0(Both) 2. Best Gaze (Lateral Gaze Paresis) - 0(Normal) 3. Visual Field Loss - 0(No visual loss) 4. Facial Palsy - 0(Normal) 5a. Left Arm: Motor (10-second hold) - 0(No drift) 5b. Right Arm: Motor (10-second hold) - 0(No drift) 6a. Left Leg: Motor (5-second hold - always test supine) - 0(No drift) 6b. Right Leg: Motor (5-second hold - always test supine) - 0(No drift) 7. Limb Ataxia (finger/nose \T\ heel/uriostegui - test with eyes open) - 0(Absent) 8. Sensory Loss (pinprick arms/legs/face) - 0(Normal) 9. Best Language: Aphasia (description/naming/reading) - 0(No aphasia) 10. Dysarthria (speech clarity - read or repeat words) - 0(Normal) 11. Extinction and Inattention (visual/tactile/auditory/spatial/personal) - 0(No abnormality) Initials: jb4 Signatures: Dispatcher [employer] EDMS Ella Campos RN LAURIE Ashly Finnegan RN Miguel Angel Crisostomo MD MD kdr Marva Strange RN RN bb Jamey Moon, STAINED GLASS INSTALLER-C STAINED GLASS INSTALLER-Cla1 Kristin Mejia RN RN hb Bryson, James, RN RN jb4 Juan Garcia RN jb4 Corrections: (The following items were deleted from the chart) 23:16 23:[address] [facility] 23:16 23:14 Telemetry/MedSurg (observation) [facility] 23:16 23:14 [facility] 23:57 23:18 SARS-COV-2 RT PCR+MOL.LAB.BRZ ordered. EDMS EDMS 04/23 19:16 04/22 23:16 [facility] 04/23 19:16 04/22 23:16 [facility]
--- NOTE | 2022-04-22 23:15 | ER ---
Nurse's Notes [facility] Name: Eliz Heart Age: 77 yrs Sex: Female : 1945 Arrival Date: 04/22/2022 Time: 21:27 Bed 6 Private MD: Diagnosis: Weakness;Dysarthria following unspecified cerebrovascular disease;Dysphasia Presentation: 04/22 21:27 Acuity: THOMAS 2 hb 21:28 Coronavirus screen: At this time, the client does not indicate any symptoms associated hb with coronavirus-19. Ebola Screen: No symptoms or risks identified at this time. Initial Sepsis Screen: Does the patient meet any 2 criteria? No. Patient's initial sepsis screen is negative. Does the patient have a suspected source of infection? No. Patient's initial sepsis screen is negative. Risk Assessment: Do you want to hurt yourself or someone else? Patient reports no desire to harm self or others. 21:52 Chief complaint: EMS states: Pt family called EMS reporting pt was feeling dizzy saying jb4 the room was spinning. Pt is unable to move or feel either leg, has good pedal pulses, is reporting weakness in both arms and is unable to use them. Started developing slurred speech and difficulty speaking upon arrival to ED. Pt has a 20g in the left AC. Onset of symptoms was April 22, 2022 at 20:56. Transition of care: patient was not received from another setting of care. 21:52 Method Of Arrival: EMS: [facility] jb4 Historical: - Allergies: 21:46 Tylenol; hb - Home Meds: 21:46 glipizide 10 mg Oral tab [Active]; metformin 1,000 mg Oral tab [Active]; hb - PMHx: 21:46 Diabetes - NIDDM; urinary incontinenece; Hyperlipidemia; hb - Immunization history:: Adult Immunizations up to date. - Social history:: Smoking status: Patient denies any tobacco usage or history of. Screenin:45 Abuse screen: Denies threats or abuse. Denies injuries from another. Nutritional hb screening: No deficits noted. Tuberculosis screening: No symptoms or risk factors identified. Fall Risk Total Prado Fall Scale indicates Low Risk Score (25-44 pts). Fall prevention measures have been instituted. Side Rails Up X 2 Frequent Obs/Assesments occuring Family Present and informed to notify staff if they need to leave bedside As available Patient and Family Educated on Fall Prevention Program and strategies. Assessment: 21:27 Reassessment: CODE STROKE CALLED, pt to CT via stretcher with Valentin SULLIVAN. 21:27 VAN Scoring: Arm Drift: Flaccid/no antigravity Visual Disturbance: No visual jb4 disturbance noted. Aphasia: Expressive aphasia noted. Provider notified of +VAN scoring. Neglect: No neglect noted. 21:27 TNKase (Tenecteplase) Screening: Indications: Definite evidence of stroke, ischemic, jb4 embolic, or hypertensive: Yes. Treatment will start within 4.5 hours onset of symptoms: Yes. No evidence of intracranial hemorrhage or CT of head and no evidence of peripheral hemorrhage or recent CVA: No. Consent for thrombolytic therapy: Yes. 21:27 General: Appears in no apparent distress. comfortable, Behavior is calm, cooperative. jb4 Pain: Denies pain. Neuro: Level of Consciousness is awake, alert, obeys commands, Oriented to person, place, time, situation, Vacuum Metalizing Supervisor are weak bilaterally Weakness in bilateral hand(s) arm(s) leg(s) foot/feet Speech is slurred, with expressive aphasia noted, Facial symmetry appears normal, Pupils are PERRLA, Numbness in right leg and left leg. Cardiovascular: Patient's skin is warm and dry. Respiratory: Airway is patent Respiratory effort is even, unlabored, Respiratory pattern is regular, symmetrical. GI: No signs and/or symptoms were reported involving the gastrointestinal system. : No signs and/or symptoms were reported regarding the genitourinary system. EENT: No signs and/or symptoms were reported regarding the EENT system. Derm: Skin is intact, Skin is pink, warm \T\ dry. Musculoskeletal: Circulation, motion, and sensation intact. Range of motion: intact in all extremities. 22:45 The patient has not been NPO before screening. The patient is not alert and/or unable jb4 to follow commands. The patient does not exhibit slurred or garbled speech. The patient is not exhibiting difficulty speaking. The patient does not exhibit difficulty understanding words. The patient is able to swallow own secretions with no drooling or need for suction. Patient tolerated one teaspoon of water. No drooling, immediate coughing, gurgling, or clearing of the throat was noted. The patient tolerated 90mL of water. No drooling, immediate coughing, gurgling, or clearing of the throat was noted. The patient passed the bedside swallow screening. Oral medications may be given as ordered. Contact Physician for further diet orders. Provider notified of bedside swallow screening results: Miguel Angel Allred MD. 04/23 00:00 Reassessment: Patient appears in no apparent distress at this time. Patient and/or jb4 family updated on plan of care and expected duration. Pain level reassessed. Patient is alert, oriented x 3, equal unlabored respirations, skin warm/dry/pink. 01:00 Reassessment: Patient appears in no apparent distress at this time. Patient and/or jb4 family updated on plan of care and expected duration. Pain level reassessed. Patient is alert, oriented x 3, equal unlabored respirations, skin warm/dry/pink. 01:23 Reassessment: Patient is alert, oriented x 3, equal unlabored respirations, skin bb warm/dry/pink. pt c/o swelling to lips Dr Allred notified. 02:00 Reassessment: Patient appears in no apparent distress at this time. Patient and/or jb4 family updated on plan of care and expected duration. Pain level reassessed. Patient is alert, oriented x 3, equal unlabored respirations, skin warm/dry/pink. 03:00 Reassessment: Patient appears in no apparent distress at this time. Patient and/or jb4 family updated on plan of care and expected duration. Pain level reassessed. Patient is alert, oriented x 3, equal unlabored respirations, skin warm/dry/pink. 04:00 Reassessment: Patient appears in no apparent distress at this time. Patient and/or jb4 family updated on plan of care and expected duration. Pain level reassessed. Patient is alert, oriented x 3, equal unlabored respirations, skin warm/dry/pink. 04:51 Reassessment: Patient appears in no apparent distress at this time. Patient and/or jb4 family updated on plan of care and expected duration. Pain level reassessed. Patient is alert, oriented x 3, equal unlabored respirations, skin warm/dry/pink. 06:00 Reassessment: Pt is resting in bed with eyes closed, respirations are even and jb4 unlabored. Vital Signs: 04/22 21:39 BP 139 / 71; Pulse 79; Resp 17; Pulse Ox 94% on R/A; Pain 0/10; hb 21:45 BP 139 / 71; Pulse 80; Resp 17; Pulse Ox 99% on R/A; hb 22:00 BP 148 / 71; Pulse 67; Resp 16; Pulse Ox 96% on R/A; hb 22:02 Weight 78.47 kg; hb 22:15 BP 140 / 63; Pulse 72; Pulse Ox 96% on R/A; hb 23:10 BP 130 / 93; Pulse 67; Resp 18; Pulse Ox 93% on R/A; jb4 04/23 00:15 BP 136 / 66; Pulse 80; Resp 16; Pulse Ox 96% on R/A; jb4 01:15 BP 130 / 59; Pulse 74; Resp 15; Pulse Ox 94% ; jb4 02:15 BP 120 / 60; Pulse 73; Resp 16; Pulse Ox 93% on R/A; jb4 02:40 BP 127 / 60; Pulse 76; Resp 16; Pulse Ox 97% on R/A; jb4 03:40 BP 111 / 51; Pulse 79; Resp 16; Pulse Ox 94% on R/A; jb4 04:45 BP 115 / 56; Pulse 73; Resp 16; Pulse Ox 94% on R/A; jb4 05:45 BP 129 / 57; Pulse 69; Resp 14; Pulse Ox 95% on R/A; jb4 06:40 BP 107 / 48; Pulse 71; Resp 16; Pulse Ox 92% on R/A; jb4 19:36 BP 138 / 65; Pulse 85; Resp 18; Pulse Ox 94% on R/A; NIH Stroke Scale Scores: 04/22 21:27 NIHSS Score: 18 jb4 22:14 NIHSS Score: 16 kdr 22:45 NIHSS Score: 0 jb4 ED Course: 21:27 Patient arrived in ED. jb4 21:27 Miguel Angel Allred MD is Attending Physician. kdr 21:40 CT Stroke Brain w/o Contrast In Process Unspecified. EDMS 21:40 Maintain EMS IV. Dressing intact. Good blood return noted. Site clean \T\ dry. Gauge \T\ hb site: 20g LAC. 21:46 Triage completed. hb 21:46 Arm band placed on. hb 21:46 Patient has correct armband on for positive identification. hb 22:11 Juan Garcia, RN is Primary Nurse. jb4 22:18 Stroke CXR 1 View In Process Unspecified. EDMS 23:11 Kodi Healy is Hospitalizing Provider. kdr 23:55 CT Neck Angio In Process Unspecified. EDMS 23:55 Head angio In Process Unspecified. EDMS 04/23 01:16 Assisted to bedside commode. bb 01:17 Urine collected: clean catch specimen, clear. bb 20:17 No provider procedures requiring assistance completed. ll3 20:17 Patient admitted, IV remains in place. ll3 Administered Medications: 04/22 22:09 Drug: TNK FOR STROKE - Tenecteplase 0.25 mg/kg {Co-Signature: marc (Juan Garcia RN).} Route: IV; Rate: per protocol; Site: left antecubital; 04/23 01:33 Drug: Benadryl (diphenhydrAMINE) 12.5 mg Route: IVP; Site: right antecubital; jbAugustin Medication: 04/22 21:46 VIS not applicable for this client. hb Point of Care Testing: Blood Glucose: 21:39 Blood Glucose: 240 mg/dL; hb Ranges: Output: 04/23 01:17 Urine: 400ml (Voided); Total: 400ml. bb Outcome: 04/22 23:14 Decision to Hospitalize by Provider. kdr 04/23 19:35 Admitted to ICU via stretcher, room 8, with chart, Report called to Lb lafleur Condition: improved Instructed on the need for admit, Demonstrated understanding of instructions. 20:18 Patient left the ED. ll3 NIH Stroke Scale - NIH Stroke Score Date: 04/22/2022 Time: 21:27 Total Score = 18 1a. Level of Consciousness (LOC) - 0(Alert) 1b. Level of Consciousness (LOC) (Month \T\ Age) - 0(Both) 1c. LOC Commands (Open \T\ Closes Eyes/Balloon Dipper) - 0(Both) 2. Best Gaze (Lateral Gaze Paresis) - 0(Normal) 3. Visual Field Loss - 0(No visual loss) 4. Facial Palsy - 0(Normal) 5a. Left Arm: Motor (10-second hold) - 3(No effort against gravity) 5b. Right Arm: Motor (10-second hold) - 3(No effort against gravity) 6a. Left Leg: Motor (5-second hold - always test supine) - 4(No movement) 6b. Right Leg: Motor (5-second hold - always test supine) - 4(No movement) 7. Limb Ataxia (finger/nose \T\ heel/uriostegui - test with eyes open) - 0(Absent) 8. Sensory Loss (pinprick arms/legs/face) - 2(Severe to total loss) 9. Best Language: Aphasia (description/naming/reading) - 1(Mild to moderate aphasia) 10. Dysarthria (speech clarity - read or repeat words) - 1(Mild to Moderate) 11. Extinction and Inattention (visual/tactile/auditory/spatial/personal) - 0(No abnormality) Initials: jb4 NIH Stroke Scale - NIH Stroke Score Date: 04/22/2022 Time: 22:14 Total Score = 16 1a. Level of Consciousness (LOC) - 0(Alert) 1b. Level of Consciousness (LOC) (Month \T\ Age) - 0(Both) 1c. LOC Commands (Open \T\ Closes Eyes/Balloon Dipper) - 0(Both) 2. Best Gaze (Lateral Gaze Paresis) - 0(Normal) 3. Visual Field Loss - 0(No visual loss) 4. Facial Palsy - 0(Normal) 5a. Left Arm: Motor (10-second hold) - 3(No effort against gravity) 5b. Right Arm: Motor (10-second hold) - 3(No effort against gravity) 6a. Left Leg: Motor (5-second hold - always test supine) - 3(No effort against gravity) 6b. Right Leg: Motor (5-second hold - always test supine) - 3(No effort against gravity) 7. Limb Ataxia (finger/nose \T\ heel/uriostegui - test with eyes open) - 2(Present in two limbs) 8. Sensory Loss (pinprick arms/legs/face) - 0(Normal) 9. Best Language: Aphasia (description/naming/reading) - 1(Mild to moderate aphasia) 10. Dysarthria (speech clarity - read or repeat words) - 1(Mild to Moderate) 11. Extinction and Inattention (visual/tactile/auditory/spatial/personal) - 0(No abnormality) Initials: kdr NIH Stroke Scale - NIH Stroke Score Date: 04/22/2022 Time: 22:45 Total Score = 0 1a. Level of Consciousness (LOC) - 0(Alert) 1b. Level of Consciousness (LOC) (Month \T\ Age) - 0(Both) 1c. LOC Commands (Open \T\ Closes Eyes/Balloon Dipper) - 0(Both) 2. Best Gaze (Lateral Gaze Paresis) - 0(Normal) 3. Visual Field Loss - 0(No visual loss) 4. Facial Palsy - 0(Normal) 5a. Left Arm: Motor (10-second hold) - 0(No drift) 5b. Right Arm: Motor (10-second hold) - 0(No drift) 6a. Left Leg: Motor (5-second hold - always test supine) - 0(No drift) 6b. Right Leg: Motor (5-second hold - always test supine) - 0(No drift) 7. Limb Ataxia (finger/nose \T\ heel/uriostegui - test with eyes open) - 0(Absent) 8. Sensory Loss (pinprick arms/legs/face) - 0(Normal) 9. Best Language: Aphasia (description/naming/reading) - 0(No aphasia) 10. Dysarthria (speech clarity - read or repeat words) - 0(Normal) 11. Extinction and Inattention (visual/tactile/auditory/spatial/personal) - 0(No abnormality) Initials: jb4 Signatures: Dispatcher [employer] EDChelsea Wan RN RN kl Rittger, Kevin, MD MD kdr Ballard, Brenda, RN RN bb Baxter, Heather, RN RN Juan Garcia RN RN jb4 Delia Davey RN RN 3 Juan [email or web address] Corrections: (The following items were deleted from the chart) 04:51 04/22 21:27 General: Appears in no apparent distress. comfortable, Behavior is jb4 calm, cooperative, jb4 04/23 04:51 04/22 21:27 Pain: Denies pain. jb4 jbAugustin 04/23 04:51 11 21:27 Neuro: Level of Consciousness is awake, alert, obeys commands, jb4 Oriented to person, place, time, situation, Vacuum Metalizing Supervisor are weak bilaterally Weakness in bilateral hand(s) arm(s) leg(s) foot/feet Speech is slurred, with expressive aphasia noted, Facial symmetry appears normal, Pupils are PERRLA, Numbness in right leg and left leg jb4 04/23 04:04/22 21:27 Cardiovascular: Patient's skin is warm and dry. jb4 jb4 04/23 04:04/22 21:27 Respiratory: Airway is patent Respiratory effort is even, jb4 unlabored, Respiratory pattern is regular, symmetrical, jb4 04/23 04:04/22 21:27 GI: No signs and/or symptoms were reported involving the jb4 gastrointestinal system. jb4 04/23 04:04/22 21:27 : No signs and/or symptoms were reported regarding the jb4 genitourinary system. jb4 04/23 04:04/22 21:27 Derm: Skin is intact, Skin is pink, warm \T\ dry. jb4 jb4 04/23 04:04/22 21:27 EENT: No signs and/or symptoms were reported regarding the EENT jb4 system. jb4 04/23 04:04/22 21:27 Musculoskeletal: Circulation, motion, and sensation intact. Range jb4 of motion: intact in all extremities, jb4
[2022-04-23 00:09] LABS: SARS-CoV-2 Antigen Rapid Res Negative (Negative)
[2022-04-23] MEDS ORDERED: DIPHENHYDRAMINE 50 MG/ML VIAL ONE (01:30)
[2022-04-23] MEDS ORDERED: ONDANSETRON 4 MG/2 ML VIAL IV PRN (02:43)
[2022-04-23] MEDS ORDERED: ACETAMINOPHEN 500 MG TAB PO PRN (02:43)
--- NOTE | 2022-04-23 02:46 | P.HP ---
Certification for Inpatient Patient admitted to: Observation With expected LOS: <2 Midnights Patient will require the following post-hospital care: None Practitioner: I am a practitioner with admitting privileges, knowledge of patient current condition, hospital course, and medical plan of care. Services: Services provided to patient in accordance with Admission requirements found in Title 42 Section 412.3 of the Code of Federal Regulations Patient History Date of Service: 04/23/22 Reason for admission: Dysphasia, weakness R/O CVA History of Present Illness: 77-year-old female with history of [id number] diabetes, hyperlipidemia presents the emergency department for speech changes, weakness in all extremities. She reports that around 8 PM last night after taking her cholesterol medication she began to feel weakness in all of her body, she reports she is unable to walk and family noted some speech changes. Upon arrival to the emergency department code stroke was called CT head was performed without contrast which was negative for acute findings. Her NIH initially was as high as 18 as she was not able to move any of her upper or lower extremities as well as had some apparent speech changes. Patient was given TNK, shortly after her symptoms completely resolved, her current NIH is 0. CT head/neck angiogram was performed which revealed no evidence of major intracranial arterial occlusion, no evidence of significant stenosis or occlusion in the neck, right-sided 3 mm intracranial aneurysm at the M1 segment bifurcation. ED physician spoke with neurology on-call who recommended patient can be admitted here for further evaluation and management not likely to require intervention in regards to aneurysm given its small size and the recent administration of TNKase. Patient back to her baseline currently, ED provider wishes to admit for further evaluation and management of suspected CVA. Allergies acetaminophen [From Tylenol] Allergy (Verified 06/11/14 11:10) Rash Home Medications: Metformin ER [Glucophage ER*] 500 mg PO BID 06/11/14 Benzonatate [Tessalon Perle*] 100 mg PO TID PRN #30 cap 06/13/14 levoFLOXacin [Levaquin*] 500 mg PO DAILY 5 PM #7 tab 06/13/14 methylPREDNISolone [Medrol] 4 mg PO DAILY #1 tab 06/13/14 - Past Medical/Surgical History Diabetic: Yes -: DM, GERD -: HLD -: Appendectomy, Cholecystectomy, Hysterectomy Psychosocial/ Personal History: Retired, lives at home with - Family History Family History: Reviewed- Non-Contributory - Social History Smoking Status: Never smoker Alcohol use: No CD- Drugs: No Caffeine use: Yes Place of Residence: Home Review of Systems General: Weakness Neurological: Change in Speech (resolved) Physical Examination - Physical Exam General: Alert, In no apparent distress, Oriented x3 HEENT: Atraumatic, PERRLA, Mucous membr. moist/pink, EOMI, Sclerae nonicteric Neck: Supple, 2+ carotid pulse no bruit, No LAD, Without JVD or thyroid abnormality Respiratory: Clear to auscultation bilaterally, Normal air movement Cardiovascular: Regular rate/rhythm, Normal S1 S2 Capillary refill: <2 Seconds Gastrointestinal: Normal bowel sounds, No tenderness Musculoskeletal: No tenderness Integumentary: No rashes Neurological: Normal gait, Normal speech, Normal strength at 5/5 x4 extr, Normal tone, Cranial nerves 3-12 intact, Normal affect - Studies Laboratory Data (last 24 hrs) 04/22/22 21:40: PT 11.0, INR 1.00, APTT 33.3 04/22/22 21:40: WBC 9.40, Hgb 12.3, Hct 37.7, Plt Count 235 04/22/22 21:40: Sodium 138, Potassium 3.4 L, BUN 22 H, Creatinine 1.15, Glucose 257 H Assessment and Plan - Plan Assessment: Weakness/dysphasia R/O CVA S/P TNK DMII non-insulin dependent with hyperglycemia HLD 3mm right M1 Segment aneurysm Plan: Weakness/dysphasia R/O CVA S/P TNK: MRI, echo, carotid doppler, Q4H accuchecks, NIH Qshift, neuro consult in place. No ASA for 24 hours. continue statin. NIH currently 0. DMII non-insulin dependent with hyperglycemia: A1c in AM, SSI HLD: Continue statin 3mm right M1 Segment aneurysm: Discussed with neuro by ED MD, no intervention indicated at this time, OP follow up recommended. Discussed with patient DVT PPX: SCD- received TNK in ED, no ASA, lovenox for 24 hours Code status:full Discharge Plan: Home Plan to discharge in: 24 Hours - Advance Directives Does patient have a Living Will: No Does patient have a Durable POA for Healthcare: No - Code Status/Comfort Care Code Status Assessed: Yes (Full code) Critical Care: No Time Spent Managing Pts Care (In Minutes): 70
[2022-04-23 05:10] LABS: Hematocrit 35.9 % (36.0-45.0); Lymphocytes % 25.6 % (15.3-44.8); MPV 8.6 fL (7.6-11.3); RBC Red Blood Cell Count 4.28 M/uL (3.86-4.86)
[2022-04-23 05:23] LABS: Albumin 3.2 g/dL (3.4-5.0); Bilirubin Total 0.6 mg/dL (0.2-1.0); Potassium 3.5 mmol/L (3.5-5.1); Protein, Total 6.9 g/dL (6.4-8.2)
[2022-04-23] MEDS: INSULIN -REGULAR HUMAN 50 UNIT/0.5 ML ML SQ SCH ×4 (07:30→20:40)
--- NOTE | 2022-04-23 08:09 | RAD REPORT ---
EXAM DESCRIPTION: USCarotid Artery Dvfvhhbie22/7/2022 3:26 am CLINICAL HISTORY: CVA COMPARISON: None FINDINGS: The velocity of the right internal carotid artery equals 61 cm/sec. The right ICA/CCA rati o 0.8 The velocity of the left internal carotid artery equals 62 cm/sec. The left ICA/CCA ratio 0.6 Mild plaque is present within the carotid arteries. The vertebral arteries demonstrate antegrade flow IMPRESSION: Mild plaque within the carotid arteries without evidence of a hemodynamically significan t stenosis NASCET criteria used. Mild 0-49% stenosis Moderate 50-69% stenosis Severe 70-99% stenosis
[2022-04-23] MEDS: FOLIC ACID 1 MG TABLET PO SCH (09:00)
[2022-04-23] MEDS ORDERED: FOLIC ACID 1 MG TABLET ONE (09:22)
--- NOTE | 2022-04-23 11:51 | RAD REPORT ---
EXAM DESCRIPTION: CT - Head angio - 04/22/2022 11:54 pm CLINICAL HISTORY: Stroke, follow up COMPARISON: CT head without contrast April 22, 2022. TECHNIQUE: Multiple helical axial tomographic images were obtained of the head and neck following ad ministration of intravenous contrast per angiographic protocol. MIP reformatted images were obtained. This exam was performed according to our departmental dose-optimization program, which includes auto mated exposure control, adjustment of the mA and/or kV according to patient size and/or use of iterat willis reconstruction technique. FINDINGS: Head: Intracranial carotid calcifications are present. Intracranial segments of the bilateral internal roberts tid arteries appear patent without significant stenosis or occlusion. Bilateral anterior and middle c erebral arteries appear patent without significant stenosis or occlusion. Intracranial segments of th e bilateral vertebral arteries, basilar artery, and posterior cerebral arteries appear patent without occlusion. Intracranial segment of the left vertebral artery appears diminutive. There is a 3 mm ane urysm at the bifurcation of the M1 segment of right middle cerebral artery (series 408, image 46). There is no acute intracranial hemorrhage. No mass. No midline shift. No ventriculomegaly. Rojas-white matter differentiation is maintained. Paranasal sinus mucosal thickening noted. Mastoid air cells and middle ear spaces are clear. Orbits a nd orbital contents are unremarkable. Osseous structures are unremarkable. Surrounding soft tissues are unremarkable. Neck: Mild atherosclerosis involving both carotid bulbs demonstrated. Carotid and vertebral arterial vascul ature of the neck appears patent without significant stenosis or occlusion. Thyroid gland demonstrates mildly heterogeneous attenuation. There are two adjacent nodular densities in the left thyroid lobe measuring up to 1.3 cm. Salivary glands appear unremarkable. No evidence of adenopathy. Retropharyngeal space appears normal. Epiglottis appears normal. Larynx and vocal folds appear unremarkable. Visualized lungs are clear. Osseous structures are unremarkable. IMPRESSION: 1. No evidence of major intracranial arterial occlusion. 2. No evidence of significant arterial stenosis or occlusion in the neck. 3. Right-sided 3 mm intracranial aneurysm at the M1 segment bifurcation. 4. 1.3 cm incidental left thyroid nodule. No follow-up imaging is recommended. Reference: J Am Erica R adiol. 2014;12(2): 143-50 THIS REPORT CONTAINS FINDINGS THAT MAY BE CRITICAL TO PATIENT CARE: The findings were verbally discus sed via telephone conference with Dr. Allred by Dr. Sher at 0117 hours central time on April 23. The results were acknowledged and understood. Electronically signed by: Praneeth Sher MD 04/23/2022 1:17 AM ASSOCIATE GENETICS PROFESSOR Due to temporary technical issues with the PACS/Fluency reporting system, reports are being signed by the in house radiologists without review as a courtesy to insure prompt reporting. The interpreting radiologist is fully responsible for the content of the report.
--- NOTE | 2022-04-23 12:11 | EKG ---
Test Date: 2022-04-22 Test Time: 21:47:11 Hand Heel Seat Fitter: SWATI MEASUREMENT RESULTS: Intervals: Rate: 79 NV: 166 QRSD: 82 QT: 384 QTc: 440 [place]: P: 33 NV: 166 QRS: 13 T: -5 INTERPRETIVE STATEMENTS: Normal sinus rhythm Normal ECG Compared to ECG 09/12/2017 16:19:37 No significant changes Electronically Signed On 04-23-22 12:10:32 DRUG SAFETY ASSISTANT by Otoniel Ross
[2022-04-23 12:48] VITALS: BMI 32.5
--- NOTE | 2022-04-23 13:02 | RAD REPORT ---
EXAM DESCRIPTION: MRI - Brain W/Wo Cont - 04/23/2022 10:46 am CLINICAL HISTORY: CVA COMPARISON: head CT April 22, 2022 TECHNIQUE: Axial, sagittal, and coronal magnetic images of the brain were obtained. 20 cc MultiHance administered intravenously FINDINGS: Mild to moderate signal within periventricular, deep and subcortical white matter probably ischemic changes secondary to small vessel disease Abnormal signal right basal ganglia compatible with an old lacunar infarct. 1.1 centimeter area of ab normal signal deep white matter right frontal lobe likely old infarct. Small old right cerebellar inf arct The ventricles are normal in caliber. Diffusion-weighted/ ADC mapping sequences do not demonstrate evidence of an acute infarction. No abnormal enhancement within the brain is seen. An extra-axial fluid collection is not noted. Fluid within the sinuses/mastoids is not seen IMPRESSION: No acute intracranial abnormality displayed
--- NOTE | 2022-04-23 13:05 | RAD REPORT ---
EXAM DESCRIPTION: MRI - MRA Neck W/Wo Cont - 04/23/2022 10:46 am CLINICAL HISTORY: TIA COMPARISON: April 22, 2022 TECHNIQUE: Magnetic resonance angiogram of the neck was performed. 19 cc MultiHance was administered intravenously. 3D MIPS reconstruction performed FINDINGS: The common carotid, internal carotid and external carotid arteries do not demonstrate a si gnificant stenosis. An aneurysm is not seen. The left vertebral artery is hypoplastic. No abnormality vertebral arteries noted. Mild plaque within the common carotid, internal carotid and external carotid arteries bilaterally. IMPRESSION: Mild plaque within the carotid arteries NASCET criteria used. Mild 0-49% stenosis Moderate 50-69% stenosis Severe 70-99% stenosis
--- NOTE | 2022-04-23 13:18 | RAD REPORT ---
EXAM DESCRIPTION: MRI - MRA Head Wo Cont - 04/23/2022 10:46 am CLINICAL HISTORY: CVA COMPARISON: 04/22/2022 CT angiogram TECHNIQUE: Magnetic resonance angiogram was performed. 3D MIPS reconstruction performed FINDINGS: The anterior cerebral, middle cerebral, posterior cerebral, distal internal carotid and ba silar arteries do not demonstrate a significant stenosis. 3 millimeter aneurysm at the junction of the M1 and M2 segments right middle cerebral artery. 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
--- NOTE | 2022-04-23 18:25 | P.PN ---
Date of Service: 04/23/22 Patient seen and examined. She has no complaint. She denies any weakness. MRI of the brain: No acute CVA. No problems swallowing. Patient is functionally at baseline. No need for further PT. Status post TNKase. Repeat head CT within 24 hours of TNKase. DC home with aspirin, Plavix, Lipitor, folic acid in a.m. if repeat CT head shows no intracranial bleed.
[2022-04-23] MEDS ORDERED: ATORVASTATIN 40 MG TAB PO SCH (21:00)
[2022-04-24 05:04] LABS: Absolute Lymphocytes (CBC) 1.8 K/uL (0.7-4.9); Hematocrit 38.5 % (36.0-45.0); Lymphocytes % 25.9 % (15.3-44.8); MCV 83.9 fL (80-100); MPV 8.4 fL (7.6-11.3); RBC Red Blood Cell Count 4.59 M/uL (3.86-4.86)
[2022-04-24 05:17] LABS: Albumin 3.4 g/dL (3.4-5.0); Bilirubin Total 0.6 mg/dL (0.2-1.0); Potassium 3.6 mmol/L (3.5-5.1); Protein, Total 7.1 g/dL (6.4-8.2)
[2022-04-24] MEDS: INSULIN -REGULAR HUMAN 50 UNIT/0.5 ML ML SQ SCH ×2 (07:30→11:30)
[2022-04-24] MEDS: FOLIC ACID 1 MG TABLET PO SCH ×2 (07:35→09:12)
[2022-04-24] MEDS: POTASSIUM CL SA 10 MEQ TAB PO ONE ×2 (07:35→09:12)
[2022-04-24 08:28] VITALS: O2SAT 96
--- NOTE | 2022-04-24 12:48 | RAD REPORT ---
EXAM DESCRIPTION: CT - Head Brain Wo Cont - 04/24/2022 12:07 am CLINICAL HISTORY: 77 years Female Follow up TNKase admin COMPARISON: MRI brain of the same day TECHNIQUE: Contiguous axial images of the brain were obtained without the administration of intraven ous contrast.This exam was performed according to our departmental dose-optimization program which in cludes use of Automated Exposure Control, adjustment of the mA and/or kV according to patient size an d/or use of iterative reconstruction technique. DLP: 858 mGy*cm FINDINGS: Brain: Right frontal encephalomalacia No acute intracranial hemorrhage. No extra-axial col lection. No mass effect or herniation. Unchanged prominence of the sulci and cisterns. Confluent pe riventricular and subcortical white matter hypodensity is noted. Vascular calcifications. Ventricles: Within normal limits in size. Globes and orbits: No acute abnormality. Bones: No acute osseous finding Paranasal sinuses: Mucosal thickening. No air-fluid levels. Mastoid air cells: Well pneumatized. Soft tissues: Within normal limits IMPRESSION: 1. No acute hemorrhage, hydrocephalus or herniation. 2. Cerebral volume loss, chronic small vessel ischemic changes and prior right frontal infarct. Consi hanna MRI brain for further evaluation. Electronically signed by: Norris Damon DO 04/24/2022 12:19 AM LAN MANAGER Due to temporary technical issues with the PACS/Fluency reporting system, reports are being signed by the in house radiologists without review as a courtesy to insure prompt reporting. The interpreting radiologist is fully responsible for the content of the report.
[2022-04-24 13:03] VITALS: BP 136/63; TEMP 97.5
--- NOTE | 2022-04-24 14:39 | ECHO ---
HEIGHT: 5 ft 1 in WEIGHT: 172 lb 0 oz DATE OF STUDY: 04/24/[address]: Jamey Moon NP 2-DIMENSIONAL: YES M.MODE: YES DOPPLER: YES COLOR FLOW: YES TDS: PORTABLE: YES DEFINITY: BUBBLE STUDY: DIAGNOSIS: CEREBRAL VASCULAR ACCIDENT CARDIAC HISTORY: CATHERIZATION: SURGERY: PROSTHETIC VALVE: PACEMAKER: MEASUREMENTS (cm) DIASTOLIC (NORMALS) SYSTOLIC (NORMALS) IVSd 1.0 (0.6-1.2) LA Diam 4.0 (1.9-4.0) LVEF 65% LVIDd 3.5 (3.5-5.7) LVIDs 2.3 (2.0-3.5) %FS 35% LVPWd 1.0 (0.6-1.2) Ao Diam 3.0 (2.0-3.7) 2 DIMENSIONAL ASSESSMENT: RIGHT ATRIUM: NORMAL LEFT ATRIUM: NORMAL RIGHT VENTRICLE: NORMAL LEFT VENTRICLE: NORMAL TRICUSPID VALVE: MILD TRICUSPID REGURGITATION MITRAL VALVE: MILD MITRAL REGURGITATION PULMONIC VALVE: NORMAL AORTIC VALVE: NORMAL PERICARDIAL EFFUSION: NONE AORTIC ROOT: NORMAL LEFT VENTRICULAR WALL MOTION: NORMAL DOPPLER/COLOR FLOW: SEE BELOW COMMENTS: NORMAL LEFT VENTRICULAR EJECTION FRACTION 60-65% WITH NORMAL WALL MOTION. MILD TRICUSPID REGURGITATION. MILD MITRAL REGURGITATION. GRADE I DIASTOLIC DYSFUNCTION. TECHNOLOGIST: FELIPA PRITCHARD
--- NOTE | 2022-04-24 21:11 | P.DS ---
Admission Date: 04/23/22 Discharge Date: 04/24/22 Disposition: ROUTINE DISCHARGE Discharge Condition: GOOD Reason for Admission: Dysphasia, weakness R/O CVA Consultations: Neurology - Dr. Modi Brief History of Present Illness: 77yo F, PMH: NIDDM2, HLD, prior CVA Presented to ED due to speech changes and bilateral weakness in all extremities. Symptoms similar to prior CVA. She was within the window and given TNK for NIH: 18. She had quick improvement of her symptoms shortly after TNK. Admitted for further evaluation. Hospital Course: Problem List Weakness/dysphasia R/O CVA S/P TNK DMII non-insulin dependent with hyperglycemia HLD 3mm right M1 Segment aneurysm Patient presented with stroke symptoms. She was within the window and received TNK. Her symptoms completely resolved shortly after receiving the medication. CT brain, MRI, and MRA did not reveal any new stroke / bleed. MRI did note a small ~3mm aneurysm which likely has no clinical significance at this time. MRI did reveal areas of prior stroke. Labwork and rest of workup was otherwise normal. Neurology - Dr. Modi was consulted. Patient deemed stable for discharge home, to start aspirin 81mg daily and folic acid. Continue statin as previously prescribed. Follow up: PCP within 1 week Neurology - Dr. Modi in ~3-4 weeks. Vital Signs/Physical Exam: Temp Pulse Resp BP Pulse Ox 97.5 F 81 16 136/63 94 04/24/22 12:00 04/24/22 12:00 04/24/22 12:00 04/24/22 12:00 04/24/22 12:00 General: Alert, In no apparent distress, Oriented x3 HEENT: EOMI, Sclerae nonicteric Neck: Supple, No LAD Respiratory: Clear to auscultation bilaterally, Normal air movement Cardiovascular: No edema, Regular rate/rhythm Gastrointestinal: Soft and benign, Non-distended, No tenderness Musculoskeletal: No contractures, No tenderness Integumentary: No rashes, No significant lesion Neurological: Normal speech, Normal strength at 5/5 x4 extr, Cranial nerves 3-12 intact, Normal affect Laboratory Data at Discharge: WBC 7.00 K/uL (4.3-10.9) 04/24/22 05:00 Hgb 12.8 g/dL (12.0-15.0) 04/24/22 05:00 Hct 38.5 % (36.0-45.0) 04/24/22 05:00 Plt Count 235 K/uL (152-406) 04/24/22 05:00 PT 11.0 SECONDS (9.5-12.5) 04/22/22 21:40 INR 1.00 04/22/22 21:40 APTT 33.3 SECONDS (24.3-36.9) 04/22/22 21:40 Sodium 138 mmol/L (136-145) 04/24/22 04:43 Potassium 3.6 mmol/L (3.5-5.1) 04/24/22 04:43 BUN 16 mg/dL (7-18) 04/24/22 04:43 Creatinine 0.69 mg/dL (0.55-1.3) 04/24/22 04:43 Glucose 158 mg/dL (74-106) H 04/24/22 04:43 Total Bilirubin 0.6 mg/dL (0.2-1.0) 04/24/22 04:43 AST 14 U/L (15-37) L 04/24/22 04:43 ALT 27 U/L (12-78) 04/24/22 04:43 Alkaline Phosphatase 68 U/L (45-117) 04/24/22 04:43 Triglycerides 232 mg/dL (<150) H 04/23/22 04:57 Cholesterol 167 mg/dL (<200) 04/23/22 04:57 HDL Cholesterol 36 mg/dL (40-60) L 04/23/22 04:57 Cholesterol/HDL Ratio 4.64 04/23/22 04:57 Home Medications: Atorvastatin Calcium [Lipitor] 40 mg PO BEDTIME 04/23/22 Lansoprazole [Prevacid] 30 mg PO DAILY 04/23/22 Metformin HCl [Metformin HCl ER] 500 mg PO BID 04/23/22 Aspirin [Aspirin EC 81 MG] 81 mg PO DAILY 30 Days #30 tab 04/24/22 Folic Acid 1 mg PO DAILY 30 Days #30 tab 04/24/22 New Medications: Aspirin [Aspirin EC 81 MG] 81 mg PO DAILY 30 Days #30 tab Folic Acid 1 mg PO DAILY 30 Days #30 tab Physician Discharge Instructions: Patient presented with stroke symptoms. She was within the window and received TNK. Her symptoms completely resolved shortly after receiving the medication. CT brain, MRI, and MRA did not reveal any new stroke / bleed. MRI did note a small ~3mm aneurysm which likely has no clinical significance at this time. MRI did reveal areas of prior stroke. Labwork and rest of workup was otherwise normal. Neurology - Dr. Modi was consulted. Patient deemed stable for discharge home, to start aspirin 81mg daily and folic acid. Continue statin as previously prescribed. Follow up: PCP within 1 week Neurology - Dr. Modi in ~3-4 weeks. Followup: Mariel Lai DO, DO [Primary Care Provider] - 1 Week Time spent managing pt's care (in minutes): 45
== END 2022-04-24 16:27 | disposition home or self-care (01) | DRG 63 ==
LOC: ER 21:20 → ERHOLD 04-23 01:53 → OBSVTOIN 04-23 17:29 → 3RD-ICU 04-23 20:05 → 2ND 04-24 08:07
PROVIDERS: ADMIT Internal Medicine; ATTEND Hospitalist
DX: I63.9 Cerebral infarction, unspecified (principal); E78.5 Hyperlipidemia, unspecified; K21.9 Gastro-esophageal reflux disease without esophagitis; E11.65 Type 2 diabetes mellitus with hyperglycemia; I67.1 Cerebral aneurysm, nonruptured; R53.1 Weakness; R47.02 Dysphasia; R47.81 Slurred speech; R29.718 NIHSS score 18; Z88.5 Allergy status to narcotic agent; Z79.02 Long term (current) use of antithrombotics/antiplatelets; Z79.82 Long term (current) use of aspirin; Z79.84 Long term (current) use of oral hypoglycemic drugs; Z90.49 Acquired absence of other specified parts of digestive tract; Z90.710 Acquired absence of both cervix and uterus; Z79.899 Other long term (current) drug therapy; Z20.822 Contact with and (suspected) exposure to COVID-19
CPT/HCPCS: 36415; 70450; 70496; 70498; 70544; 70549; 70553; 71045; 80048; 80053; 80061; 82947; 83036; 84484; 85025; 85610; 85730; 87811; 92523; 92977; 93005; 93306; 93880; 97116; 97161; 99291; A9577; G0378; J1200; J3101; Q9967